=== PATIENT | female | born 1975 | race Caucasian/White ===

== ENCOUNTER 2018-01-27 09:15 | Day surgery (SDC) | payer OTHER ==
[2018-01-25 10:53] LABS: BASOPHILS # (AUTO) 0.1 K/uL (0.0-0.2); BASOPHILS % (AUTO) 0.8 % (0.0-2.0); EOSINOPHILS # (AUTO) 0.1 K/uL (0.0-0.4); EOSINOPHILS % (AUTO) 1.2 % (0.0-4.0); HEMOGLOBIN 15.4 g/dL (12.0-16.0); LYMPHOCYTES % (AUTO) 27.3 % (20.5-51.5); MEAN CORPUSCULAR HEMOGLOBIN 28 pg (27-31); MEAN CORPUSCULAR HGB CONC 33 % (32-36); MEAN CORPUSCULAR VOLUME 85 fL (79.0-98.0); MONOCYTES # (AUTO) 0.5 K/uL (0.0-1.0); MONOCYTES % (AUTO) 7.1 % (1.7-9.3); NEUTROPHILS # (AUTO) 4.6 K/uL (1.8-7.7); NEUTROPHILS % (AUTO) 63.6 % (40.0-70.0); PLATELET COUNT (AUTO) 214 K/uL (130-430); RED BLOOD CELL COUNT(AUTO) 5.42 MIL/uL (4.2-6.2); RED CELL DISTRIBUTION WIDTH 12.9 % (9.0-15.0); WHITE BLOOD COUNT (AUTO) 7.3 K/uL (4.8-10.8)
[2018-01-25 11:15] LABS: BILIRUBIN,URINE NEGATIVE (NEGATIVE); CLARITY/URINE CLOUDY (CLEAR); COLOR,URINE YELLOW (YELLOW); GLUCOSE,URINE NEGATIVE (NEGATIVE); KETONES,URINE NEGATIVE (NEGATIVE); LEUKOCYTE ESTERASE ,URINE NEGATIVE (NEGATIVE); NITRITE, URINE NEGATIVE (NEGATIVE); PROTEIN URINE NEGATIVE (NEGATIVE); UROBILINOGEN,URINE 0.2 (0.2-1.0)
[2018-01-25 11:19] LABS: BLOOD, URINE TRACE (NEGATIVE)
[2018-01-25 11:47] LABS: BACTERIA,URINE FEW /HPF (None Seen); RBC,URINE 0-3 /HPF (0-3); WBC,URINE 0-3 /HPF (0-3)
[2018-01-25 11:48] LABS: MUCUS,URINE None Seen /LPF (None Seen); URINE AMORPHOUS PHOSPHATES 2+ /HPF (None Seen)
[~2018-01-27] VITALS: Ht 160 cm; Wt 110.7 kg
[2018-01-27] MEDS ORDERED: LR 1,000 ML IV SCH (15:33)
[2018-01-27] MEDS ORDERED: METOCLOPRAMIDE HCL 10 MG/2 ML VIAL IVP PRN (15:45)
[2018-01-27] MEDS ORDERED: MORPHINE 4 MG/ML INJ. SYRINGE IVP PRN ×2 (15:45)
[2018-01-27 16:28] VITALS: BP_SYST 118
[2018-01-27] MEDS ORDERED: HYDROcodone/ACETAMIN 5-325 MG TAB (NORCO/ VICODIN) PO PRN (16:30)
[2018-01-27] MEDS ORDERED: ONDANSETRON HCL 4 MG/2 ML VIAL IVP PRN (16:30)
[2018-01-27] MEDS ORDERED: OXYCODONE/ACETAMINOPHEN 5-325 TABLET PO PRN ×2 (16:30)
[2018-01-27] MEDS ORDERED: ROCURONIUM BROMIDE 10 MG/ML (ZEMURON) ONE (16:35)
[2018-01-27] MEDS ORDERED: ATROPINE SULFATE 0.4 MG/ML VIAL ONE (16:35)
[2018-01-27] MEDS ORDERED: fentaNYL CITRATE 250 MCG/5 ML AMP ONE (16:35)
[2018-01-27] MEDS ORDERED: NS 1000 ML BAG IV ONE (16:35)
[2018-01-27] MEDS ORDERED: MORPHINE 4 MG/ML INJ. SYRINGE ONE (16:35)
[2018-01-27] MEDS ORDERED: FUROSEMIDE 20 MG/2 ML VIAL ONE (16:35)
[2018-01-27] MEDS ORDERED: MIDAZOLAM HCL 5 MG/ML VIAL (VERSED) IV ONE (16:35)
[2018-01-27] MEDS ORDERED: LR 1,000 ML IV.SOLN IV ONE (16:35)
[2018-01-27] MEDS ORDERED: KETOROLAC TROMETHAMINE 30 MG VIAL ONE (16:35)
[2018-01-27] MEDS ORDERED: BUPIVACAINE /EPINEPHRINE/PF 0.5% 30 ML VIAL INJ ONE (16:35)
[2018-01-27] MEDS ORDERED: ROPIVACAINE 0.2% (NAROPIN) PF SOLUTION 100 ML BOTTLE ONE (16:35)
[2018-01-27] MEDS ORDERED: PROPOFOL 200MG/ 20ML VIAL (DIPRIVAN) IV ONE (16:35)
[2018-01-27] MEDS ORDERED: NS IRRIG SOLN 1000 ML IR ONE (16:35)
[2018-01-27] MEDS: MORPHINE 4 MG/ML INJ. SYRINGE IVP PRN ×2 (16:35→16:49)
[2018-01-27] MEDS ORDERED: SEVOFLURANE 15 MIN GAS INH ONE (16:35)
[2018-01-27] MEDS ORDERED: MEPERIDINE HCL/PF 100 MG/ML AMP IM PRN (18:15)
[2018-01-27] MEDS ORDERED: PROMETHAZINE HCL 25 MG/ML AMP IM PRN (18:15)
[2018-01-27] MEDS ORDERED: CEFAZOLIN 2 GM IVPB PREMIX 50 ML IV ONE (19:00)
[2018-01-27] MEDS ORDERED: KETOROLAC TROMETHAMINE 30 MG VIAL IVP ONE (19:30)
[2018-01-28] MEDS: KETOROLAC TROMETHAMINE 30 MG VIAL IVP SCH ×2 (01:15→12:34)
== END 2018-01-28 13:15 | disposition home or self-care (01) ==
LOC: SMU 09:15 → SDS 09:15 → SPU 18:24 → SDS 01-28 13:15
PROVIDERS: ATTEND Specialist
DX: N80.0 Endometriosis of uterus (principal); N83.02 Follicular cyst of left ovary; N83.01 Follicular cyst of right ovary; Z98.890 Other specified postprocedural states; A64 Unspecified sexually transmitted disease; Z68.41 Body mass index [BMI] 40.0-44.9, adult; E66.01 Morbid (severe) obesity due to excess calories; Z88.2 Allergy status to sulfonamides; Z88.8 Allergy status to other drugs, medicaments and biological substances
CPT/HCPCS: 36415; 58552; 71046; 81000; 84702; 85025; 88307; 93005; C1727; J0461; J0690; J1885 ×2; J1940; J2175; J2250; J2270; J2550; J2704; J2795; J3010; J3490; J7030; J7120